=== PATIENT | male | born 1995 | race Caucasian/White ===

== ENCOUNTER 2023-12-06 18:39 | Emergency (ER) | payer SELFPAY ==
[~2023-12-06] VITALS: Ht 170.2 cm; Wt 74.0 kg
[2023-12-06 18:40] VITALS: O2SAT 99
[2023-12-06 19:41] VITALS: BP 129/82; PULSE 88; RESP 16; TEMP 98.2
== END 2023-12-06 20:02 | disposition home or self-care (01) ==
LOC: ER 18:39
DX: F41.9 Anxiety disorder, unspecified (principal)
CPT/HCPCS: 99283